=== PATIENT | female | born 1965 | race Caucasian/White ===

== ENCOUNTER 2020-07-16 09:46 | Outpatient (CLI) | payer BC | END 2020-07-16 23:59 | disposition home or self-care (01) | LOC: LAB 09:46 | PROVIDERS: ATTEND Specialist | DX: Z01.812 Encounter for preprocedural laboratory examination (principal); Z20.822 Contact with and (suspected) exposure to COVID-19 | CPT/HCPCS: C9803; U0003 ==

== ENCOUNTER 2020-07-22 05:51 | Day surgery (SDC) | payer BC ==
[~2020-07-22] VITALS: Ht 177.8 cm; Wt 62.1 kg
[2020-07-22] MEDS ORDERED: oxyCODONE HCL SR 20MG TAB.SR.12H PO ONE (06:30)
[2020-07-22] MEDS ORDERED: GABAPENTIN 400 MG CAPSULE PO ONE (06:30)
[2020-07-22] MEDS ORDERED: GABAPENTIN 100 MG CAPSULE PO ONE (06:30)
[2020-07-22] MEDS ORDERED: KETOROLAC TROMETHAMINE INJ 30 MG/ML VIAL IV ONE (06:30)
[2020-07-22] MEDS ORDERED: ACETAMINOPHEN 325 MG TABLET PO ONE (06:30)
[2020-07-22] MEDS ORDERED: ANESTHESIA TRAY IN PYXIS 1 EA TRAY MC ONE (06:59)
--- NOTE | 2020-07-22 07:00 | NUR ---
RN CLOSING NOTES Patient was seen sleeping in his bed. Patient is A/Ox4. Patient is on oxygen via nasal canula at 2 liters/minute and with no respiratory distress noted. Patient has a saline lock on his left hand G#22, which is intact and patent. Patient has no signs and symptoms of acute distress at this time. Safety precautions in place: Bed locked, bed alarm on, side rails up x3, and call light within easy reach of the patient. Will endorse care to day shift nurse. Addendum: 07/22/20 at 0744 by CHRISTY HERRERA RN RN NOTES Patient is currently in the operating room right now.
[2020-07-22] MEDS ORDERED: HEMOSTATIC MATRIX 8 ML 1 EACH PAD MC ONE (07:01)
[2020-07-22] MEDS ORDERED: BUPIVACAINE MPF 0.5% W/EPI INJ 30 ML VIAL ONE (07:03)
[2020-07-22] MEDS ORDERED: LIDOCAINE HCL/PF 1% 30 ML SDV ONE (07:04)
[2020-07-22] MEDS ORDERED: methylPREDNISolone ACETATE 80 MG/ML VIAL ONE (07:04)
[2020-07-22] MEDS ORDERED: METHYLENE BLUE 10 ML VIAL ONE (07:05)
[2020-07-22] MEDS ORDERED: KETOROLAC TROMETHAMINE INJ 30 MG/ML VIAL ONE (07:09)
--- NOTE | 2020-07-22 07:10 | NUR ---
RN NOTES PATIENT TOOK ONLY ONE DOSE OF TORADOL 30 MG IV PRIOR SURGERY.
[2020-07-22] MEDS ORDERED: CEFAZOLIN 1 GM ONE (07:14)
[2020-07-22] MEDS ORDERED: METH2.5T14 PO (07:15)
[2020-07-22] MEDS ORDERED: MIDAZOLAM HCL 2 MG/2ML VIAL ONE (07:29)
[2020-07-22] MEDS ORDERED: ROCURONIUM BROMIDE 50 MG/5 ML ONE (07:29)
[2020-07-22 07:31] VITALS: BP 124/74
--- NOTE | 2020-07-22 08:08 | NUR ---
MS RN NOTES PATIENT AT OR FOR SCHEDULED SURGERY/ PROCEDURE.
--- NOTE | 2020-07-22 10:30 | NUR ---
MS RN NOTES PATIENT BACK FROM RECOVERY ROOM. PATIENT ALERT AND ORIENTED X 4 WITH NO SINGS OF DISTRESS. PATIENT WITH RIGHT FOREARM G#20, PATENT AND INTACT. PATIENT DOES NOT COMPLAIN OF PAIN OR DISCOMFORT. COMFORT MEASURES PROVIDED. WITH WRITTEN ORDERS FROM DR. HALL. PATIENT IS IN GOOD DISPOSITION. PROVIDED WITH CALM AND QUIET ENVIRONMENT. PATIENT ON PROGRESSIVE DIET. WITH ORDER FOR DISCHARGE ONCE SHE VOIDS. WILL CONTINUE TO MONITOR PATIENT.
[2020-07-22] MEDS ORDERED: ONDANSETRON HCL/PF 4 MG/2 ML VIAL ONE (12:44)
[2020-07-22] MEDS ORDERED: MORPHINE SULFATE INJ 2 MG/ML DISP.SYRIN IV PRN (13:30)
[2020-07-22] MEDS ORDERED: ONDANSETRON HCL/PF 4 MG/2 ML VIAL IV PRN (13:30)
[2020-07-22] MEDS ORDERED: HYDROCODONE/APAP 10/325MG TABLET PO PRN (13:30)
--- NOTE | 2020-07-22 13:35 | NUR ---
MS RN NOTES PATIENT WITH EPISODE OF EMESIS. PATIENT REQUESTED FOR MEDICATION WITH ORDER FOR ZOFRAN IV. MEDICATION GIVEN ORDERED. MAINTAINED ON HIGH BACK REST. WILL CONTINUE TO MONITOR PATIENT.
--- NOTE | 2020-07-22 14:05 | NUR ---
MS RN NOTES PATIENT WITH NO SIGNS OF EMESIS. ABLE TO VIOD AT THIS TIME. MEDICATION GIVEN FOR EMESIS WAS EFFECTIVE. PATIENT WITH CLEARANCE TO GO HOME ONCE PATIENT IS ABLE TO VOID. WILL CONTINUE TO MONITOR PATIENT.
--- NOTE | 2020-07-22 14:30 | NUR ---
MS RN NOTES PATIENT REMAINS STABLE AND IS VERBALIZING DESIRE TO GO HOME. PATIENT DISCHARGE INSTRUCTIONS PREPARED AND HEALTH TEACHINGS DONE. PATIENT VERBALIZED UNDERSTANDING AND APPRECIATION. PATIENT WILL BE PICKED UP BY .
--- NOTE | 2020-07-22 15:10 | NUR ---
MS RN NOTES PATIENT DISCHARGED ORDERED. IV PERIPHERAL LINE REMOVED AND COVERED WITH BANDAID. NO SIGNS AND SYMPTOMS OF BLEEDING NOTED. NO COMPLAIN OF PAIN. PATIENT PICKED UP BY AND ACCOMPANIED VIA WHEELCHAIR TO HER CAR BY NURSE
== END 2020-07-22 16:00 | disposition home or self-care (01) ==
LOC: DS 05:51 → UNDOADMIN 05:53 → MED 05:53 → UNDODISIN 15:15 → DS 16:00
PROVIDERS: ATTEND Specialist
DX: R59.0 Localized enlarged lymph nodes (principal); Z88.1 Allergy status to other antibiotic agents
CPT/HCPCS: 38500; 72020; 84703; 87081; A6209; A6402; J0690 ×2; J1040; J1100; J1885 ×2; J2250; J2405 ×2; J2704; J3490 ×4; Q9968; G0378